=== PATIENT | male | born 1990 ===

== ENCOUNTER 2019-09-16 20:10 | Emergency (ER) | payer OTHER ==
[2019-09-16 20:36] VITALS: BP 144/96
--- NOTE | 2019-09-16 21:24 | UC ---
Eye Complaint HPI - HPI Summary HPI Summary: The patient is a 29-year-old male with a one-week history of nasal congestion postnasal drip sneezing that is been associated with bilateral eye redness, tearing, and itching. There is scant a.m. discharge on his lashes. His eyes are irritated. He wears glasses. He denies any use of contact lenses. He has had some edema of his eyelids. - History of Current Complaint Chief Complaint: UCEye Stated Complaint: EYE COMPLAINT Time Seen by Provider: 09/16/19 21:18 Hx Obtained From: Patient Onset/Duration: Gradual Onset, Lasting Days - 7 Timing: Constant Severity Initially: Mild Severity Currently: Mild Pain Intensity: 3 Pain Scale Used: 0-10 Numeric Location of Injury: Conjunctiva Aggravating Factor(s): Nothing Alleviating Factor(s): Nothing Associated Signs And Symptoms: Positive: Drainage (Clear), Swelling - Allergies/Home Medications Allergies/Adverse Reactions: Allergies Allergy/AdvReac Type Severity Reaction Status Date / Time bee venom protein (honey bee) Allergy Severe "it was a Verified 09/16/19 20:37 very powerful reaction" Home Medications: Home Medications NK [No Home Medications Reported] 09/16/19 [History Confirmed 09/16/19] PMH/Surg Hx/FS Hx/Imm Hx Previously Healthy: Yes - Surgical History Surgical History: None - Family History Known Family History: Positive: Non-Contributory - Social History Alcohol Use: Occasionally Substance Use Type: None Smoking Status (MU): Never Smoked Tobacco Review of Systems All Other Systems Reviewed And Are Negative: Yes Constitutional: Positive: Negative Skin: Positive: Negative Eyes: Positive: Eye Redness - and tearing ENT: Positive: Nasal Discharge Respiratory: Positive: Negative Cardiovascular: Positive: Negative Gastrointestinal: Positive: Negative Genitourinary: Positive: Negative Motor: Positive: Negative Neurovascular: Positive: Negative Musculoskeletal: Positive: Negative Neurological: Positive: Negative Psychological: Positive: Negative Physical Exam Triage Information Reviewed: Yes Appearance: Well-Appearing, No Pain Distress, Well-Nourished Vital Signs: Initial Vital Signs Temp 97.5 F 09/16/19 20:29 Pulse 74 09/16/19 20:29 Resp 16 09/16/19 20:29 BP 144/96 09/16/19 20:29 Pulse Ox 99 09/16/19 20:29 Vital Signs Reviewed: Yes Eyes: Positive: Conjunctiva Inflamed - R>L, Other: - EOMI/PERRL, mild lid edema. Negative: Discharge ENT: Positive: Hearing grossly normal, Pharynx normal, Nasal congestion, Uvula midline. Negative: Tonsillar swelling, Tonsillar exudate, Trismus, Muffled voice, Hoarse voice Neck: Positive: Supple, Nontender Respiratory: Positive: Lungs clear, Normal breath sounds, No respiratory distress Cardiovascular: Positive: RRR, No Murmur Musculoskeletal: Positive: ROM Intact, No Edema Neurological: Positive: Alert Psychological Exam: Normal Skin Exam: Normal Eye Complaint Course/Dx - Differential Dx/Diagnosis Provider Diagnosis: Bilateral conjunctivitis Discharge ED - Sign-Out/Discharge Documenting (check all that apply): Patient Departure All imaging exams completed and their final reports reviewed: No Studies - Discharge Plan Condition: Stable Disposition: HOME Patient Education Materials: Conjunctivitis (ED) Additional Instructions: Use the antibiotic eye drops as directed This may be an ALLERGIC CONJUNCTIVITIS I suggest you buy the following at your drug store They are available without a prescription ZADITOR eye drops benadryl 25 mg take two at bedtime until better recheck in 4 days if not improved - Billing Disposition and Condition Condition: STABLE Disposition: Home
[2019-09-16] MEDS ORDERED: Polymyx/Trimethoprim OPTH* 10 ML BTL BOTH EYES ONE (21:54)
[2019-09-16] MEDS ORDERED: diPHENhydraMINE PO* 25 MG PO ONE ×2 (21:55→22:01)
== END 2019-09-16 22:05 | disposition home or self-care (01) ==
LOC: UCEAST 20:10
DX: H10.9 Unspecified conjunctivitis (principal); Z91.030 Bee allergy status
CPT/HCPCS: 99202; A9270-GY; G0463